=== PATIENT | male | born 1970 | race African-American/Black ===

== ENCOUNTER 2022-03-26 20:12 | Emergency (ER) | payer MEDICARE, OTHER ==
[~2022-03-26] VITALS: Ht 170.2 cm; Wt 150.0 kg
[2022-03-26 22:22] LABS: Urine Bacteria NONE SEEN /hpf (None Seen); Urine Blood Negative /uL (Negative); Urine Mucus FEW (None Seen); Urine Specific Gravity 1.025 (1.001-1.035); Urine WBC 3 /hpf (0 - 3)
[2022-03-26] MEDS ORDERED: ONDANSETRON ODT 4 MG TAB PO ONE (22:30)
[2022-03-26] MEDS ORDERED: DONNATAL 5ml ORAL Elix (BELLADONNA ALK-PHENOBARB) PO ONE (22:30)
[2022-03-26] MEDS ORDERED: LIDOCAINE VISCOUS 2% 15ML UD PO ONE (22:30)
[2022-03-26] MEDS ORDERED: ALUM & MAG HYDROX-SIMETH LIQ(MAALOX) 30 ML PO ONE (22:30)
[2022-03-26 22:45] LABS: Basophils # (auto) 0.1 10 ^3/uL (0-0.2); Basophils % (auto) 0.5 % (0.0-2.0); Eosinophils # (auto) 0.6 10 ^3/uL (0-0.8); Eosinophils % (auto) 3.4 % (0.0-7.0); Hematocrit 51.5 % (41.0-53.0); Hemoglobin 16.6 g/dL (13.5-17.5); Lymphocytes # (auto) 2.1 10 ^3/uL (0.4-5.4); Lymphocytes % (auto) 11.6 % (10.0-50.0); Mean Corpuscular Hemoglobin 26.6 pg (28.0-32.0); Mean Corpuscular Hgb Conc. 32.2 g/dL (32.0-36.0); Mean Corpuscular Volume 82.6 fL (80.0-100.0); Monocytes # (auto) 1.7 10 ^3/uL (0-1.3); Monocytes % (auto) 9.2 % (0.0-12.0); Neutrophils # (auto) 13.6 10 ^3/uL (1.6-8.6); Neutrophils % (auto) 75.3 % (37.0-80.0); Red Blood Cells 6.23 10^6/uL (4.5-5.90); Red Cell Distribution Width 14.8 % (11.8-14.3); White Blood Cell 18.1 10^3/uL (4.4-10.8)
[2022-03-26 23:29] LABS: Albumin 3.6 g/dL (3.4-5.0); BUN/Creatinine Ratio 17.1; Calcium 9.5 mg/dL (8.5-10.1); Potassium 3.3 mmol/L (3.5-5.1)
[2022-03-26 23:32] LABS: Bilirubin, Total 1.2 mg/dL (0.2-1.0); Total Protein 8.8 g/dL (6.4-8.2)
[2022-03-27 00:39] VITALS: BP 134/98
== END 2022-03-27 00:40 | disposition home or self-care (01) ==
LOC: ER 20:16
DX: K29.70 Gastritis, unspecified, without bleeding (principal); K21.9 Gastro-esophageal reflux disease without esophagitis
CPT/HCPCS: 36415; 76705; 80053; 81001; 83690; 84484; 85025; 93005; 99285; Q0162

== ENCOUNTER 2022-04-23 10:33 | Inpatient (IN) | payer MEDICAID, MEDICARE ==
[~2022-04-23] VITALS: Ht 170.2 cm; Wt 61.8 kg
[2022-04-23] MEDS ORDERED: SODIUM CHLORIDE 0.9% 500 ML IV ONE (11:15)
[2022-04-23] MEDS ORDERED: CLINDAMYCIN 600MG IV 50 ML IV ONE (11:15)
[2022-04-23] MEDS ORDERED: KETOROLAC TROMETH 30 MG/ML 1ML VIAL IV ONE (11:15)
[2022-04-23 12:08] LABS: Basophils # (auto) 0.1 10 ^3/uL (0-0.2); Basophils % (auto) 0.5 % (0.0-2.0); Eosinophils # (auto) 0.7 10 ^3/uL (0-0.8); Hemoglobin 13.7 g/dL (13.5-17.5); Lymphocytes # (auto) 1.4 10 ^3/uL (0.4-5.4); Mean Corpuscular Hemoglobin 25.8 pg (28.0-32.0); Monocytes # (auto) 1.3 10 ^3/uL (0-1.3); Neutrophils # (auto) 11.9 10 ^3/uL (1.6-8.6); White Blood Cell 15.4 10^3/uL (4.4-10.8)
[2022-04-23 12:10] LABS: Eosinophils % (auto) 4.4 % (0.0-7.0); Hematocrit 43.6 % (41.0-53.0); Mean Corpuscular Hgb Conc. 31.4 g/dL (32.0-36.0); Mean Corpuscular Volume 82.1 fL (80.0-100.0); Monocytes % (auto) 8.5 % (0.0-12.0); Neutrophils % (auto) 77.6 % (37.0-80.0); Red Blood Cells 5.31 10^6/uL (4.5-5.90); Red Cell Distribution Width 15.4 % (11.8-14.3)
[2022-04-23 12:29] LABS: BUN/Creatinine Ratio 15.4; Potassium 3.4 mmol/L (3.5-5.1)
[2022-04-23 12:38] LABS: Bilirubin, Total 0.9 mg/dL (0.2-1.0); Total Protein 7.5 g/dL (6.4-8.2)
[2022-04-23] MEDS ORDERED: ACETAMINOPHEN 325 MG TAB PO PRN (14:45)
[2022-04-23] MEDS ORDERED: HYDROcodone-ACET 5/325MG TAB PO PRN (14:45)
[2022-04-23] MEDS ORDERED: SODIUM CHLORIDE 0.9% 1,000 ML IV SCH (14:45)
[2022-04-23] MEDS ORDERED: POTASSIUM EFFERVESENT TAB 25 MEQ PO ONE (15:00)
[2022-04-23 16:09] LABS: Cholesterol 117 mg/dL (< 200); Triglycerides 96 mg/dL (< 150)
[2022-04-23 16:12] LABS: HDL Cholesterol 34 mg/dL (40-59); LDL Cholesterol 76 mg/dL (< 100)
[2022-04-23] MEDS ORDERED: CLINDAMYCIN 600MG IV 50 ML IV SCH (22:00)
[2022-04-23] MEDS ORDERED: ASCORBIC ACID 500 MG TAB PO SCH (22:00)
[2022-04-24 04:18] LABS: Basophils # (auto) 0.2 10 ^3/uL (0-0.2); Basophils % (auto) 1.2 % (0.0-2.0); Eosinophils # (auto) 0.9 10 ^3/uL (0-0.8); Eosinophils % (auto) 5.8 % (0.0-7.0); Hematocrit 42.1 % (41.0-53.0); Hemoglobin 13.5 g/dL (13.5-17.5); Lymphocytes # (auto) 1.6 10 ^3/uL (0.4-5.4); Lymphocytes % (auto) 10.8 % (10.0-50.0); Mean Corpuscular Hemoglobin 26.1 pg (28.0-32.0); Mean Corpuscular Hgb Conc. 32.2 g/dL (32.0-36.0); Mean Corpuscular Volume 81.3 fL (80.0-100.0); Monocytes # (auto) 1.4 10 ^3/uL (0-1.3); Monocytes % (auto) 9.7 % (0.0-12.0); Neutrophils # (auto) 10.8 10 ^3/uL (1.6-8.6); Neutrophils % (auto) 72.5 % (37.0-80.0); Nucleated Red Blood Cells % 0.1 %; Red Blood Cells 5.18 10^6/uL (4.5-5.90); White Blood Cell 14.9 10^3/uL (4.4-10.8)
[2022-04-24 04:38] LABS: Albumin 3.2 g/dL (3.4-5.0); Calcium 8.8 mg/dL (8.5-10.1); Potassium 3.7 mmol/L (3.5-5.1)
[2022-04-24 04:43] LABS: Bilirubin, Total 1.2 mg/dL (0.2-1.0); Total Protein 7.2 g/dL (6.4-8.2)
[2022-04-24] MEDS ORDERED: ENOXAPARIN SOD 40 MG/0.4 ML SYRINGE SC SCH (10:00)
[2022-04-24] MEDS ORDERED: MULTIPLE VITAMIN TAB PO SCH (10:00)
[2022-04-24] MEDS ORDERED: ZINC SULFATE 220mg CAP or TAB PO SCH (10:00)
[2022-04-24] MEDS ORDERED: KETOROLAC TROMETH 30 MG/ML 1ML VIAL IV ONE (13:30)
[2022-04-24] MEDS ORDERED: POTASSIUM EFFERVESENT TAB 25 MEQ PO ONE (13:30)
[2022-04-24] MEDS: CLINDAMYCIN 600MG IV 50 ML IV SCH ×2 (14:00→22:27)
[2022-04-24] MEDS: MORPHINE SULFATE INJ 2 MG/ml SYRG IV PRN (17:50)
[2022-04-25] VITALS (8 sets, daily range): BP systolic 97–122; BP diastolic 68–86
[2022-04-25] MEDS: MORPHINE SULFATE INJ 2 MG/ml SYRG IV PRN ×2 (00:48→06:48)
[2022-04-25] MEDS: CLINDAMYCIN 600MG IV 50 ML IV SCH ×3 (05:05→21:37)
[2022-04-25] MEDS ORDERED: cefTRIAXone 1GM/50ML D5W 50 ML IV ONE (11:15)
[2022-04-25] MEDS ORDERED: HYDROcodone-ACET 5/325MG TAB PO PRN (11:15)
[2022-04-25] MEDS ORDERED: TEMAZEPAM 15 MG CAP PO PRN (11:15)
[2022-04-25 12:43] LABS: Urine Bacteria NONE SEEN /hpf (None Seen); Urine Blood TRACE /uL (Negative); Urine Specific Gravity 1.016 (1.001-1.035); Urine WBC 5 /hpf (0 - 3)
[2022-04-25 13:00] LABS: Amphetamine Screen, Urine NEGATIVE (NEGATIVE); Barbiturate Scree,Urine NEGATIVE (NEGATIVE); Benzodiazephine Screen, Urine NEGATIVE (NEGATIVE); Cannabinoid Screen, Urine NEGATIVE (NEGATIVE); Cocaine Screen, Urine NEGATIVE (NEGATIVE); Opiate Scree,Urine POSITIVE (NEGATIVE); Phencyclidine Screen, Urine NEGATIVE (NEGATIVE)
[2022-04-26 05:00] VITALS: BP 110/73
[2022-04-26] MEDS: CLINDAMYCIN 600MG IV 50 ML IV SCH (05:40)
[2022-04-26 06:12] LABS: Basophils # (auto) 0 10 ^3/uL (0-0.2); Basophils % (auto) 0.2 % (0.0-2.0); Eosinophils # (auto) 0.8 10 ^3/uL (0-0.8); Eosinophils % (auto) 8.3 % (0.0-7.0); Hematocrit 39.8 % (41.0-53.0); Hemoglobin 12.8 g/dL (13.5-17.5); Lymphocytes # (auto) 1.4 10 ^3/uL (0.4-5.4); Lymphocytes % (auto) 15.7 % (10.0-50.0); Mean Corpuscular Hemoglobin 26.3 pg (28.0-32.0); Mean Corpuscular Hgb Conc. 32.3 g/dL (32.0-36.0); Mean Corpuscular Volume 81.4 fL (80.0-100.0); Monocytes # (auto) 1.2 10 ^3/uL (0-1.3); Monocytes % (auto) 12.7 % (0.0-12.0); Neutrophils # (auto) 5.8 10 ^3/uL (1.6-8.6); Neutrophils % (auto) 63.1 % (37.0-80.0); Red Blood Cells 4.89 10^6/uL (4.5-5.90); Red Cell Distribution Width 14.9 % (11.8-14.3); White Blood Cell 9.1 10^3/uL (4.4-10.8)
[2022-04-26 06:30] LABS: BUN/Creatinine Ratio 14.4; Calcium 8.9 mg/dL (8.5-10.1)
[2022-04-26 08:00] VITALS: BP 108/77
[2022-04-26 09:00] VITALS: BP 108/77
[2022-04-26] MEDS ORDERED: cefTRIAXone 1GM/50ML D5W 50 ML IV SCH (09:00)
[2022-04-26] MEDS ORDERED: AMOX500T86 PO (09:49)
[2022-04-27 13:18] LABS: Hepatitis A Ab IgM Negative; Hepatitis B Core IgM Negative; Hepatitis C Antibody Negative (Negative)
== END 2022-04-26 12:28 | disposition home or self-care (01) | DRG 872 ==
LOC: ER 10:33 → OVERFLOW 14:46 → UNDODISIN 04-24 04:36 → CENTRAL 04-24 23:45
PROVIDERS: ADMIT Nurse Practitioner Family; ATTEND Internal Medicine
DX: A41.9 Sepsis, unspecified organism (principal); L03.116 Cellulitis of left lower limb; E87.6 Hypokalemia; F17.210 Nicotine dependence, cigarettes, uncomplicated; Z20.822 Contact with and (suspected) exposure to COVID-19; Z68.21 Body mass index [BMI] 21.0-21.9, adult
CPT/HCPCS: 36415; 73590; 80048; 80053; 80061; 80074; 80307; 81001; 83036; 83605; 83735; 84443; 85025; 85652; 87040; 87077; 87081; 87186; 87205; 87426; 93971; G0378; J0696; J1885; J3490